=== PATIENT | male | born 1990 | race Caucasian/White ===

== ENCOUNTER 2021-03-07 09:44 | Inpatient (IN) | payer OTHER ==
[~2021-03-07 09:44] MED LIST: Iopamidol-370 76% 500 ML 1 ML ONE
[2021-03-07] MEDS ORDERED: Boostrix 0.5 ML (Tdap) VIAL ONE (09:50)
[2021-03-07] MEDS ORDERED: Fentanyl 100 MCG/2 ML VIAL ONE ×6 (09:51→17:51)
[2021-03-07 10:04] LABS: #Basophils 0.2 thou/uL (0.0-0.2); #Eosinphils 0.4 thou/uL (0.0-0.7); #Lymphocytes 5.1 thou/uL (1.20-3.40); #Monocytes 1.3 thou/uL (0.11-0.59); #Neutrophils 11.3 thou/uL (1.40-6.50); %Basophils 0.8 % (0.0-1.0); %Eosinophils 1.9 % (0.0-10.0); %Lymphocytes 28.1 % (21.0-51.0); %Monocytes 7.1 % (0.0-10.0); Hemoglobin 15.6 g/dL (14.0-18.0); Mean Corpuscular HGB CONC 33.4 g/dL (32.0-36.0); Mean Corpuscular Hemoglobin 29.7 pg (27.0-31.0); Mean Corpuscular Volume 88.8 fL (78.0-98.0); Mean Platelet Volume 8.4 fL (7.4-10.4); Platelet Count 318 thou/uL (130-400); Red Blood Cell (RBC) Count 5.25 mill/uL (4.70-6.10); White Blood Cell (WBC) Count 18.2 thou/uL (4.8-10.8)
[2021-03-07] MEDS ORDERED: Meropenem 2 GM in Sodium Chloride 0.9% 100 ML IVPB SCH (10:15)
[2021-03-07] MEDS ORDERED: Meropenem 2 GM in Admixture Fee 1 EACH IVPB SCH (10:15)
[2021-03-07 10:20] LABS: INR-International Normal Ratio 1.2; PTT 32.3 sec (22.9-36.1); Prothrombin Time 15.2 sec (12.0-14.7)
[2021-03-07 10:29] LABS: Actual Bicarbonate (HCO3v) 25 mEq/L (22-28); Analyzer IN Cardio ER; Base Excess -2.8 mEq/L (-2.0 to +3.0); Calcium, Ionized (venous) 1.11 mmol/L (1.16-1.32); Chloride (VBG) 100 mmol/L (98-106); Hemoglobin (Hb) 13.5 g/dL (13.2-17.3); Sodium 134.7 mmol/L (133-146); pH (venous) 7.28 (7.32-7.43)
[2021-03-07 10:30] LABS: ALT (SGPT) 70 U/L (8-55); AST (SGOT) 78 U/L (5-34); Albumin 4.2 g/dL (3.5-5.0); Alkaline Phosphatase 55 U/L (40-110); Anion Gap 17 mmol/L (10-20); BUN (Urea Nitrogen) 14 mg/dL (8.9-20.6); Bilirubin, Total 0.9 mg/dL (0.2-1.2); Calc. Creatinine Clearance 0 mL/min (70-130); Calcium 9.5 mg/dL (7.8-10.44); Carbon Dioxide 25 mmol/L (22-29); Chloride 103 mmol/L (98-107); Globulin 2.4 g/dL (2.4-3.5); Glucose 153 mg/dL (70-105); Protein, Total 6.6 g/dL (6.0-8.3); Sodium 142 mmol/L (136-145)
[2021-03-07 10:40] LABS: Potassium 2.7 mmol/L (3.5-5.1)
[2021-03-07 11:40] LABS: CKMB 5.4 ng/mL (0-6.6)
[2021-03-07] MEDS ORDERED: Ketamine 50 MG/ML (10ML VIAL) ONE (11:41)
[2021-03-07 12:11] LABS: SARS-CoV-2 NAA Rapid Test Not Detected (NotDetected)
[2021-03-07] MEDS ORDERED: CEFAZOLIN 2 GM in Premix Bag 1 BAG IVPB SCH (12:15)
[2021-03-07] MEDS ORDERED: Ondansetron PF 4 MG/2 ML Vial IVP PRN (12:34)
[2021-03-07] MEDS ORDERED: Ondansetron ODT 4 MG TAB PO PRN (12:34)
[2021-03-07] MEDS ORDERED: Dextrose 5% in Water 1,000 ML IV PRN (12:34)
[2021-03-07] MEDS ORDERED: Dextrose 50% Abboject 50 ML SYRINGE SLOW IVP PRN (12:34)
[2021-03-07 13:01] LABS: Analyzer IN Cardio ER; CO2 Tension 36.1 mmHg (35.0-45.0); Calcium, Ionized (arterial) 1.04 mmol/L (1.12-1.30); Carboxyhemoglobin (COHb) 0.2 gm% (0.0-3.0); Hemoglobin (Hb) 13.8 g/dL (14.0-18.0); Potassium - ABG Lab 3.07 mmol/L (3.70-5.30); pH, Arterial 7.34 (7.35-7.45)
[2021-03-07 13:04] LABS: O2 Tension (PaO2), arterial 51.6 mmHg (80.0-100.0); Puncture Site RFA
[2021-03-07 13:07] LABS: ALV-art Gradient 53.005 mmHg (0-20)
[2021-03-07] MEDS ORDERED: Calcium Chloride 1 GM/10 ML Abboject SYRINGE ONE ×2 (13:07→14:13)
[2021-03-07] MEDS ORDERED: Calcium Chloride 1 GM/10 ML Abboject SYRINGE IVP SCH (13:15)
[2021-03-07 13:41] LABS: Lactic Acid 6.5 mmol/L (0.5-2.2)
[2021-03-07] MEDS ORDERED: Phenylephrine 10 MG/ML VIAL ONE ×2 (14:01→15:55)
[2021-03-07] MEDS ORDERED: ePHEDrine Sulfate 50 MG/10 ML VIAL ONE (14:13)
[2021-03-07] MEDS ORDERED: Vecuronium 10 MG VIAL ONE (14:13)
[2021-03-07] MEDS ORDERED: PROPOFOL 200 MG/20 ML VIAL ONE (14:13)
[2021-03-07] MEDS ORDERED: Rocuronium Bromide 10 MG/ML (10ML VIAL) ONE (14:13)
[2021-03-07] MEDS ORDERED: Lidocaine 1% PF 5 ML VIAL ONE (14:13)
[2021-03-07] MEDS ORDERED: Succinylcholine 200 MG/10 ml SYRINGE FS ONE (14:13)
[2021-03-07] MEDS ORDERED: Clindamycin/D5W 900 mg/50 ml Premix Bag ONE (14:42)
[2021-03-07] MEDS ORDERED: Cyclobenzaprine 10 MG TAB PO PRN (15:06)
[2021-03-07] MEDS ORDERED: Lactated Ringer's 1,000 ML IV SCH (15:15)
[2021-03-07] MEDS ORDERED: Potassium Phosphate 30 MMOL in Sodium Chloride 0.9% 500 ML IVPB SCH ×2 (16:00→18:30)
[2021-03-07] MEDS ORDERED: Lidocaine 1% w/Epinephrine 1:100K 20 ML VIAL IJ SCH (16:30)
[2021-03-07] MEDS ORDERED: fentaNYL Citrate/PF 2,000 MCG in Sodium Chloride 0.9% 60 ML IV PRN (17:33)
[2021-03-07] MEDS ORDERED: Potassium Chloride 20 MEQ in Premix Bag 1 BAG IVPB SCH (17:45)
[2021-03-07] MEDS ORDERED: Propofol 1,000 MG/100 ML VIAL IV PRN (17:52)
[2021-03-07] MEDS ORDERED: traMADol HCl 50 MG TAB PO SCH (18:00)
[2021-03-07] MEDS ORDERED: Fentanyl CADD 100 ML IV SCH (18:00)
[2021-03-07 18:09] LABS: Base Excess (BEa) -8.9 mEq/L (-2.0 to +3.0); CO2 Tension 48.7 mmHg (35.0-45.0); Carboxyhemoglobin (COHb) 0.3 gm% (0.0-3.0); Hemoglobin (Hb) 12.7 g/dL (14.0-18.0); O2 Tension (PaO2), arterial 301.1 mmHg (80.0-100.0); Potassium - ABG Lab 4.59 mmol/L (3.70-5.30)
[2021-03-07 18:11] LABS: pH, Arterial 7.21 (7.35-7.45)
[2021-03-07 18:12] LABS: ALV-art Gradient 65.825 mmHg (0-20); Puncture Site RFA
[2021-03-07 18:20] LABS: #Eosinphils 0.1 thou/uL (0.0-0.7); #Lymphocytes 1.3 thou/uL (1.20-3.40); #Monocytes 2.1 thou/uL (0.11-0.59); #Neutrophils 15.2 thou/uL (1.40-6.50); %Eosinophils 0.4 % (0.0-10.0); %Lymphocytes 6.8 % (21.0-51.0); %Neutrophils 81.8 % (42.0-75.0); Mean Corpuscular HGB CONC 34.4 g/dL (32.0-36.0); Mean Corpuscular Hemoglobin 31.5 pg (27.0-31.0); Mean Corpuscular Volume 91.6 fL (78.0-98.0); Mean Platelet Volume 8.4 fL (7.4-10.4); Platelet Count 141 thou/uL (130-400); RBC Distribution Width 12.5 % (11.5-14.5); Red Blood Cell (RBC) Count 4.13 mill/uL (4.70-6.10); White Blood Cell (WBC) Count 18.6 thou/uL (4.8-10.8)
[2021-03-07] MEDS ORDERED: Fentanyl CADD 100 ML ONE (18:20)
[2021-03-07 18:31] LABS: INR-International Normal Ratio 1.3; PTT 25.3 sec (22.9-36.1); Prothrombin Time 16.7 sec (12.0-14.7)
[2021-03-07 18:46] LABS: Anion Gap 15 mmol/L (10-20); BUN (Urea Nitrogen) 13 mg/dL (8.9-20.6); CK (CPK) 2878 U/L (30-200); Calc. Creatinine Clearance 125 mL/min (70-130); Calcium 10.5 mg/dL (7.8-10.44); Carbon Dioxide 17 mmol/L (22-29); Chloride 112 mmol/L (98-107); Glucose 145 mg/dL (70-105); Lactic Acid 8.1 mmol/L (0.5-2.2); Potassium 4.7 mmol/L (3.5-5.1); Sodium 139 mmol/L (136-145)
[2021-03-07 18:50] LABS: Magnesium 1.3 mg/dL (1.6-2.6); Phosphorus 5.9 mg/dL (2.3-4.7)
[2021-03-07] MEDS ORDERED: Lidocaine 1% w/Epinephrine 1:100K 20 ML VIAL FS SCH (19:15)
[2021-03-07] MEDS ORDERED: Magnesium Sulfate 3 GM in Sodium Chloride 0.9% 100 ML IVPB SCH (19:48)
[2021-03-07] MEDS: Lactated Ringer's 1,000 ML IV SCH (20:47)
[2021-03-07] MEDS: Acetaminophen 500 MG TAB PO SCH ×2 (21:49→21:50)
[2021-03-07] MEDS: Ascorbic Acid 500 mg Chewable Tablet PO SCH (21:49)
[2021-03-07] MEDS: Gabapentin 300 MG CAP PO SCH (21:49)
[2021-03-07] MEDS: Famotidine/PF 20 mg/2ml Vial SLOW IVP SCH (21:49)
[2021-03-07] MEDS: Clindamycin/D5W 900 MG in Premix Bag 1 BAG IVPB SCH (21:51)
[2021-03-07] MEDS: Ferrous Sulfate 325 MG TAB PO SCH (22:57)
[2021-03-08 03:37] LABS: INR-International Normal Ratio 1.2; PTT 29.9 sec (22.9-36.1); Prothrombin Time 15.2 sec (12.0-14.7)
[2021-03-08 03:59] LABS: Anion Gap 12 mmol/L (10-20); BUN (Urea Nitrogen) 14 mg/dL (8.9-20.6); Calc. Creatinine Clearance 153 mL/min (70-130); Calcium 8.6 mg/dL (7.8-10.44); Carbon Dioxide 25 mmol/L (22-29); Chloride 105 mmol/L (98-107); Glucose 121 mg/dL (70-105); Magnesium 1.5 mg/dL (1.6-2.6); Potassium 4.7 mmol/L (3.5-5.1); Sodium 137 mmol/L (136-145)
[2021-03-08 04:00] LABS: CK (CPK) 3699 U/L (30-200); Phosphorus 3.8 mg/dL (2.3-4.7)
[2021-03-08] MEDS: Lactated Ringer's 1,000 ML IV SCH ×4 (04:12→23:11)
[2021-03-08] MEDS: Acetaminophen 500 MG TAB PO SCH ×4 (04:13→21:20)
[2021-03-08 04:15] LABS: #Lymphocytes 1.1 thou/uL (1.20-3.40); #Monocytes 1.2 thou/uL (0.11-0.59); #Neutrophils 6.2 thou/uL (1.40-6.50); %Basophils 0.2 % (0.0-1.0); %Lymphocytes 13.3 % (21.0-51.0); %Monocytes 13.5 % (0.0-10.0); %Neutrophils 72.9 % (42.0-75.0); Hemoglobin 9.5 g/dL (14.0-18.0); Mean Corpuscular HGB CONC 36.4 g/dL (32.0-36.0); Mean Corpuscular Hemoglobin 31.9 pg (27.0-31.0); Mean Corpuscular Volume 87.8 fL (78.0-98.0); Mean Platelet Volume 8.6 fL (7.4-10.4); Platelet Count 96 thou/uL (130-400); RBC Distribution Width 12.6 % (11.5-14.5); Red Blood Cell (RBC) Count 2.97 mill/uL (4.70-6.10); White Blood Cell (WBC) Count 8.5 thou/uL (4.8-10.8)
[2021-03-08] MEDS: Clindamycin/D5W 900 MG in Premix Bag 1 BAG IVPB SCH (05:20)
[2021-03-08] MEDS ORDERED: Magnesium Sulfate 3 GM in Sodium Chloride 0.9% 100 ML IVPB SCH (06:00)
[2021-03-08] MEDS: Famotidine/PF 20 mg/2ml Vial SLOW IVP SCH ×2 (08:09→21:18)
[2021-03-08] MEDS: Gabapentin 300 MG CAP PO SCH ×3 (08:09→21:18)
[2021-03-08] MEDS: Ferrous Sulfate 325 MG TAB PO SCH ×3 (08:10→16:51)
[2021-03-08] MEDS: Ascorbic Acid 500 mg Chewable Tablet PO SCH ×2 (08:10→21:20)
[2021-03-08] MEDS ORDERED: Promethazine HCl 25 MG/ML VIAL IM PRN (09:15)
[2021-03-08] MEDS ORDERED: Naloxone HCl 0.4 mg/ml Vial IV PRN (09:15)
[2021-03-08] MEDS ORDERED: diphenhydrAMINE 50 MG/ML VIAL IM PRN (09:15)
[2021-03-08] MEDS ORDERED: Zolpidem Tartrate 5 MG TAB PO PRN (09:15)
[2021-03-08] MEDS ORDERED: Communication Order-Pharmacy FS SCH (09:15)
[2021-03-08] MEDS ORDERED: Ondansetron PF 4 MG/2 ML Vial IVP PRN (09:15)
[2021-03-08] MEDS ORDERED: diphenhydrAMINE 50 MG/ML VIAL IVP PRN (09:15)
[2021-03-08] MEDS: HYDROmorphone 10 mg/100 ml CADD IVPB PRN (09:59)
[2021-03-08 14:03] LABS: Hemoglobin 8.1 g/dL (14.0-18.0)
[2021-03-08] MEDS ORDERED: CEFAZOLIN 2 GM in Premix Bag 1 BAG IVPB SCH (17:00)
[2021-03-08 21:15] LABS: #Lymphocytes 0.8 thou/uL (1.20-3.40); #Monocytes 0.7 thou/uL (0.11-0.59); #Neutrophils 5.3 thou/uL (1.40-6.50); %Basophils 0.1 % (0.0-1.0); %Eosinophils 0.5 % (0.0-10.0); %Monocytes 10.7 % (0.0-10.0); %Neutrophils 76.7 % (42.0-75.0); Hemoglobin 8.8 g/dL (14.0-18.0); Mean Corpuscular HGB CONC 36.2 g/dL (32.0-36.0); Mean Corpuscular Hemoglobin 32.3 pg (27.0-31.0); Mean Corpuscular Volume 89.2 fL (78.0-98.0); Mean Platelet Volume 7.7 fL (7.4-10.4); Platelet Count 73 thou/uL (130-400); RBC Distribution Width 12.4 % (11.5-14.5); Red Blood Cell (RBC) Count 2.71 mill/uL (4.70-6.10); White Blood Cell (WBC) Count 6.9 thou/uL (4.8-10.8)
[2021-03-08] MEDS ORDERED: Magnesium Sulfate 2 GM in Sodium Chloride 0.9% 100 ML IV SCH (21:45)
[2021-03-08] MEDS ORDERED: Magnesium 2 GM/50 ML 2 GM in Premix Bag 1 BAG IVPB SCH (22:00)
[2021-03-09 04:10] LABS: #Lymphocytes 0.8 thou/uL (1.20-3.40); #Monocytes 0.7 thou/uL (0.11-0.59); #Neutrophils 5.7 thou/uL (1.40-6.50); %Basophils 0.2 % (0.0-1.0); %Eosinophils 0.5 % (0.0-10.0); %Lymphocytes 11.3 % (21.0-51.0); Hemoglobin 8.1 g/dL (14.0-18.0); Mean Corpuscular Hemoglobin 32.8 pg (27.0-31.0); Mean Corpuscular Volume 88.6 fL (78.0-98.0); Mean Platelet Volume 7.8 fL (7.4-10.4); Platelet Count 80 thou/uL (130-400); RBC Distribution Width 12.3 % (11.5-14.5); Red Blood Cell (RBC) Count 2.46 mill/uL (4.70-6.10); White Blood Cell (WBC) Count 7.2 thou/uL (4.8-10.8)
[2021-03-09 04:35] LABS: Anion Gap 6 mmol/L (10-20); BUN (Urea Nitrogen) 8 mg/dL (8.9-20.6); Calc. Creatinine Clearance 185 mL/min (70-130); Calcium 8.3 mg/dL (7.8-10.44); Carbon Dioxide 31 mmol/L (22-29); Chloride 101 mmol/L (98-107); Glucose 118 mg/dL (70-105); Magnesium 1.9 mg/dL (1.6-2.6); Phosphorus 2.1 mg/dL (2.3-4.7); Potassium 3.9 mmol/L (3.5-5.1); Sodium 134 mmol/L (136-145)
[2021-03-09 04:36] LABS: CK (CPK) 5149 U/L (30-200)
[2021-03-09] MEDS: Acetaminophen 500 MG TAB PO SCH ×4 (06:53→21:49)
[2021-03-09] MEDS ORDERED: Dextrose 5 % And 0.9 % NaCl 1,000 ML IV SCH (07:15)
[2021-03-09] MEDS ORDERED: Potassium Phosphate 30 MMOL, Magnesium Sulfate 2 GM in Sodium Chloride 0.9% 250 ML 250 ML IVPB SCH (07:30)
[2021-03-09] MEDS ORDERED: Magnesium 2 GM/50 ML 2 GM in Premix Bag 1 BAG IVPB SCH (07:30)
[2021-03-09] MEDS: Sodium Chloride 0.9% 1,000 ML IV SCH ×3 (08:42→21:15)
[2021-03-09] MEDS: Ascorbic Acid 500 mg Chewable Tablet PO SCH ×2 (13:56→21:51)
[2021-03-09] MEDS: Ferrous Sulfate 325 MG TAB PO SCH ×2 (13:56→16:34)
[2021-03-09] MEDS: Famotidine 20 MG TAB PER TUBE SCH ×2 (13:56→21:51)
[2021-03-09] MEDS: Gabapentin 300 MG CAP PO SCH ×3 (13:57→21:51)
[2021-03-09 14:05] LABS: Actual Bicarbonate (HCO3v) 24 mEq/L (22-28); Analyzer IN Cardio OR; Base Excess -5.5 mEq/L (-2.0 to +3.0); Calcium, Ionized (venous) 1.25 mmol/L (1.16-1.32); Chloride (VBG) 108 mmol/L (98-106); Hemoglobin (Hb) 11.8 g/dL (13.2-17.3); Potassium (VBG) 3.86 mmol/L (3.70-5.30); Sodium 137.7 mmol/L (133-146)
[2021-03-09 14:05] LABS: Actual Bicarbonate (HCO3v) 22 mEq/L (22-28); Analyzer IN Cardio OR; Base Excess -6.9 mEq/L (-2.0 to +3.0); Calcium, Ionized (venous) 1.36 mmol/L (1.16-1.32); Chloride (VBG) 107 mmol/L (98-106); Hemoglobin (Hb) 12.6 g/dL (13.2-17.3); Potassium (VBG) 4.34 mmol/L (3.70-5.30); Sodium 137.6 mmol/L (133-146)
[2021-03-09 14:08] LABS: pH (venous) 7.14 (7.32-7.43)
[2021-03-09 14:09] LABS: pH (venous) 7.19 (7.32-7.43)
[2021-03-09] MEDS ORDERED: Fentanyl 100 MCG/2 ML VIAL ONE (16:59)
[2021-03-09] MEDS ORDERED: Ondansetron PF 4 MG/2 ML Vial ONE (17:12)
[2021-03-09] MEDS ORDERED: PHENYLEPHRINE-NS 100 MCG/ML 10 ML SYRINGE ONE (17:12)
[2021-03-09] MEDS ORDERED: Dexamethasone 20 MG/5 ML VIAL ONE (17:12)
[2021-03-09] MEDS ORDERED: Lidocaine 1% PF 5 ML VIAL ONE (17:12)
[2021-03-09] MEDS ORDERED: PROPOFOL 200 MG/20 ML VIAL ONE (17:12)
[2021-03-09] MEDS: HYDROmorphone 10 mg/100 ml CADD IVPB PRN (21:10)
[2021-03-09] MEDS: CEFAZOLIN 2 GM in Premix Bag 1 BAG IVPB SCH (21:48)
[2021-03-10 04:13] LABS: INR-International Normal Ratio 1.1; PTT 33.1 sec (22.9-36.1); Prothrombin Time 14.3 sec (12.0-14.7)
[2021-03-10 04:20] LABS: #Basophils 0.1 thou/uL (0.0-0.2); #Lymphocytes 0.4 thou/uL (1.20-3.40); #Monocytes 0.4 thou/uL (0.11-0.59); #Neutrophils 6.4 thou/uL (1.40-6.50); %Basophils 0.7 % (0.0-1.0); %Lymphocytes 5.9 % (21.0-51.0); %Monocytes 5.4 % (0.0-10.0); Hemoglobin 7.9 g/dL (14.0-18.0); Mean Corpuscular HGB CONC 36.4 g/dL (32.0-36.0); Mean Corpuscular Hemoglobin 33.1 pg (27.0-31.0); Mean Corpuscular Volume 91.1 fL (78.0-98.0); Mean Platelet Volume 7.6 fL (7.4-10.4); Platelet Count 119 thou/uL (130-400); RBC Distribution Width 12.2 % (11.5-14.5); Red Blood Cell (RBC) Count 2.37 mill/uL (4.70-6.10); White Blood Cell (WBC) Count 7.2 thou/uL (4.8-10.8)
[2021-03-10 04:29] LABS: Anion Gap 8 mmol/L (10-20); BUN (Urea Nitrogen) 10 mg/dL (8.9-20.6); Calc. Creatinine Clearance 174 mL/min (70-130); Calcium 7.9 mg/dL (7.8-10.44); Carbon Dioxide 31 mmol/L (22-29); Chloride 103 mmol/L (98-107); Glucose 157 mg/dL (70-105); Magnesium 2.1 mg/dL (1.6-2.6); Phosphorus 2.2 mg/dL (2.3-4.7); Potassium 4.3 mmol/L (3.5-5.1); Sodium 138 mmol/L (136-145)
[2021-03-10] MEDS: Acetaminophen 500 MG TAB PO SCH ×4 (04:30→20:37)
[2021-03-10 04:43] LABS: CK (CPK) 4410 U/L (30-200)
[2021-03-10] MEDS: CEFAZOLIN 2 GM in Premix Bag 1 BAG IVPB SCH (05:30)
[2021-03-10] MEDS ORDERED: Potassium Phosphate 30 MMOL in Sodium Chloride 0.9% 250 ML 250 ML IVPB SCH (08:15)
[2021-03-10] MEDS: Ferrous Sulfate 325 MG TAB PO SCH ×2 (08:17→17:30)
[2021-03-10] MEDS: Gabapentin 300 MG CAP PO SCH ×3 (08:17→20:37)
[2021-03-10] MEDS: Ascorbic Acid 500 mg Chewable Tablet PO SCH ×2 (08:17→20:37)
[2021-03-10] MEDS: Famotidine 20 MG TAB PER TUBE SCH ×2 (08:18→20:37)
[2021-03-10] MEDS ORDERED: HYDROmorphone 10 mg/100 ml CADD IVPB PRN (17:16)
[2021-03-10] MEDS: Senokot S 8.6-50 MG TAB PO SCH (20:36)
[2021-03-10] MEDS: diphenhydrAMINE 25 MG CAP PO PRN (20:38)
[2021-03-11] MEDS: Acetaminophen 500 MG TAB PO SCH ×4 (05:42→21:04)
[2021-03-11 09:09] LABS: #Eosinphils 0.2 thou/uL (0.0-0.7); #Lymphocytes 1.9 thou/uL (1.20-3.40); #Monocytes 0.8 thou/uL (0.11-0.59); #Neutrophils 5.1 thou/uL (1.40-6.50); %Basophils 0.5 % (0.0-1.0); %Eosinophils 2.2 % (0.0-10.0); %Lymphocytes 23.4 % (21.0-51.0); %Monocytes 9.8 % (0.0-10.0); Hemoglobin 7.1 g/dL (14.0-18.0); Mean Corpuscular HGB CONC 34.2 g/dL (32.0-36.0); Mean Corpuscular Hemoglobin 31.5 pg (27.0-31.0); Mean Platelet Volume 6.6 fL (7.4-10.4); Platelet Count 211 thou/uL (130-400); RBC Distribution Width 12.5 % (11.5-14.5); Red Blood Cell (RBC) Count 2.27 mill/uL (4.70-6.10); White Blood Cell (WBC) Count 7.9 thou/uL (4.8-10.8)
[2021-03-11] MEDS: Ferrous Sulfate 325 MG TAB PO SCH ×2 (09:20→18:28)
[2021-03-11] MEDS: Gabapentin 300 MG CAP PO SCH ×3 (09:20→21:05)
[2021-03-11] MEDS: Ascorbic Acid 500 mg Chewable Tablet PO SCH ×2 (09:20→21:05)
[2021-03-11] MEDS: Polyethylene Glycol 3350 17 GM Packet PO SCH (09:20)
[2021-03-11] MEDS: Senokot S 8.6-50 MG TAB PO SCH ×2 (09:22→21:06)
[2021-03-11] MEDS: Famotidine 20 MG TAB PER TUBE SCH ×2 (09:22→21:05)
[2021-03-11 09:41] LABS: Anion Gap 7 mmol/L (10-20); BUN (Urea Nitrogen) 13 mg/dL (8.9-20.6); CK (CPK) 2627 U/L (30-200); Calc. Creatinine Clearance 189 mL/min (70-130); Calcium 8.6 mg/dL (7.8-10.44); Carbon Dioxide 33 mmol/L (22-29); Chloride 105 mmol/L (98-107); Glucose 99 mg/dL (70-105); Magnesium 1.9 mg/dL (1.6-2.6); Phosphorus 2.7 mg/dL (2.3-4.7); Potassium 3.9 mmol/L (3.5-5.1); Sodium 141 mmol/L (136-145)
[2021-03-11] MEDS: diphenhydrAMINE 25 MG CAP PO PRN (11:52)
[2021-03-11] MEDS ORDERED: Ibuprofen 800 MG TAB PO SCH (14:00)
[2021-03-11] MEDS ORDERED: Ibuprofen 200 MG TAB PO SCH (14:30)
[2021-03-11] MEDS: traMADol HCl 50 MG TAB PO PRN (16:20)
[2021-03-11] MEDS: Enoxaparin Sodium 40 MG/0.4 ML SYRINGE SC SCH (21:03)
[2021-03-11] MEDS: Ibuprofen 200 MG TAB PO SCH (21:05)
[2021-03-12] MEDS: traMADol HCl 50 MG TAB PO PRN ×3 (03:18→22:04)
[2021-03-12] MEDS: Acetaminophen 500 MG TAB PO SCH ×4 (03:18→22:03)
[2021-03-12] MEDS: Ibuprofen 200 MG TAB PO SCH ×3 (05:17→22:03)
[2021-03-12 05:49] LABS: #Eosinphils 0.3 thou/uL (0.0-0.7); #Lymphocytes 1.8 thou/uL (1.20-3.40); #Monocytes 0.7 thou/uL (0.11-0.59); #Neutrophils 4.2 thou/uL (1.40-6.50); %Basophils 0.3 % (0.0-1.0); %Eosinophils 4.1 % (0.0-10.0); %Lymphocytes 25.3 % (21.0-51.0); %Monocytes 10.2 % (0.0-10.0); Hemoglobin 7.5 g/dL (14.0-18.0); Mean Corpuscular HGB CONC 34.3 g/dL (32.0-36.0); Mean Corpuscular Hemoglobin 31.4 pg (27.0-31.0); Mean Corpuscular Volume 91.5 fL (78.0-98.0); Mean Platelet Volume 6.4 fL (7.4-10.4); Platelet Count 222 thou/uL (130-400); RBC Distribution Width 12.4 % (11.5-14.5); White Blood Cell (WBC) Count 7.1 thou/uL (4.8-10.8)
[2021-03-12 06:13] LABS: Anion Gap 13 mmol/L (10-20); BUN (Urea Nitrogen) 12 mg/dL (8.9-20.6); Calc. Creatinine Clearance 193 mL/min (70-130); Calcium 8.5 mg/dL (7.8-10.44); Carbon Dioxide 28 mmol/L (22-29); Chloride 103 mmol/L (98-107); Glucose 94 mg/dL (70-105); Magnesium 1.9 mg/dL (1.6-2.6); Phosphorus 3.5 mg/dL (2.3-4.7); Potassium 3.8 mmol/L (3.5-5.1); Sodium 140 mmol/L (136-145)
[2021-03-12] MEDS: Senokot S 8.6-50 MG TAB PO SCH ×2 (09:16→22:02)
[2021-03-12] MEDS: Gabapentin 300 MG CAP PO SCH ×3 (09:16→22:04)
[2021-03-12] MEDS: Famotidine 20 MG TAB PER TUBE SCH ×2 (09:16→22:02)
[2021-03-12] MEDS: Ascorbic Acid 500 mg Chewable Tablet PO SCH ×2 (09:16→22:02)
[2021-03-12] MEDS: Ferrous Sulfate 325 MG TAB PO SCH ×2 (09:17→16:16)
[2021-03-12] MEDS: Polyethylene Glycol 3350 17 GM Packet PO SCH (09:17)
[2021-03-12] MEDS: Enoxaparin Sodium 40 MG/0.4 ML SYRINGE SC SCH (22:11)
[2021-03-13] MEDS: Acetaminophen 500 MG TAB PO SCH ×4 (04:53→21:13)
[2021-03-13] MEDS: Ibuprofen 200 MG TAB PO SCH ×3 (04:54→21:15)
[2021-03-13] MEDS: traMADol HCl 50 MG TAB PO PRN ×2 (08:54→16:39)
[2021-03-13] MEDS: Ferrous Sulfate 325 MG TAB PO SCH ×2 (08:55→16:37)
[2021-03-13] MEDS: Senokot S 8.6-50 MG TAB PO SCH ×2 (08:55→21:13)
[2021-03-13] MEDS: Gabapentin 300 MG CAP PO SCH ×3 (08:55→21:15)
[2021-03-13] MEDS: Ascorbic Acid 500 mg Chewable Tablet PO SCH ×2 (08:55→21:15)
[2021-03-13] MEDS: Famotidine 20 MG TAB PER TUBE SCH ×2 (08:56→21:15)
[2021-03-13] MEDS: Polyethylene Glycol 3350 17 GM Packet PO SCH (08:57)
[2021-03-13] MEDS: Enoxaparin Sodium 40 MG/0.4 ML SYRINGE SC SCH (21:13)
[2021-03-14] MEDS: Acetaminophen 500 MG TAB PO SCH ×4 (04:45→20:33)
[2021-03-14] MEDS: Ibuprofen 200 MG TAB PO SCH ×3 (06:35→20:32)
[2021-03-14 06:40] LABS: Hemoglobin 8.1 g/dL (14.0-18.0); Mean Corpuscular HGB CONC 34.3 g/dL (32.0-36.0); Mean Corpuscular Hemoglobin 31.1 pg (27.0-31.0); Mean Corpuscular Volume 90.6 fL (78.0-98.0); Mean Platelet Volume 6.4 fL (7.4-10.4); Platelet Count 355 thou/uL (130-400); RBC Distribution Width 12.3 % (11.5-14.5); White Blood Cell (WBC) Count 9.3 thou/uL (4.8-10.8)
[2021-03-14 07:00] LABS: Anion Gap 11 mmol/L (10-20); BUN (Urea Nitrogen) 13 mg/dL (8.9-20.6); Calc. Creatinine Clearance 207 mL/min (70-130); Calcium 9.1 mg/dL (7.8-10.44); Carbon Dioxide 28 mmol/L (22-29); Chloride 103 mmol/L (98-107); Glucose 102 mg/dL (70-105); Phosphorus 3.4 mg/dL (2.3-4.7); Potassium 4.3 mmol/L (3.5-5.1); Sodium 138 mmol/L (136-145)
[2021-03-14 08:22] LABS: Band 7 % (5-11); Lymphocytes 7 % (21-51); MDiff Complete? YES; Metamyelocyte 1 % (0-0); Monocytes 6 % (0-10); Neutrophil 77 % (42-75); Platelet Morphology Comment Appears Adequate; Polychromasia SLIGHT = 2-3 cells (100X) (0-2/hpf); Reactive Lymphocytes 1 % (0-10)
[2021-03-14] MEDS: traMADol HCl 50 MG TAB PO PRN (09:24)
[2021-03-14] MEDS: Ascorbic Acid 500 mg Chewable Tablet PO SCH ×2 (09:26→20:32)
[2021-03-14] MEDS: Famotidine 20 MG TAB PER TUBE SCH ×2 (09:26→20:31)
[2021-03-14] MEDS: Senokot S 8.6-50 MG TAB PO SCH ×2 (09:26→20:32)
[2021-03-14] MEDS: Ferrous Sulfate 325 MG TAB PO SCH ×3 (09:27→20:32)
[2021-03-14] MEDS: Gabapentin 300 MG CAP PO SCH ×3 (09:27→20:31)
[2021-03-14] MEDS: Polyethylene Glycol 3350 17 GM Packet PO SCH (09:28)
[2021-03-14] MEDS: Cyclobenzaprine 10 MG TAB PO PRN (10:45)
[2021-03-14] MEDS ORDERED: traMADol HCl 50 MG TAB PO SCH (11:15)
[2021-03-14] MEDS ORDERED: Magnesium Citrate 300 ML BOT PO SCH (12:15)
[2021-03-14] MEDS: traMADol HCl 50 MG TAB PO SCH ×2 (13:43→18:08)
[2021-03-14] MEDS: Enoxaparin Sodium 40 MG/0.4 ML SYRINGE SC SCH (21:30)
[2021-03-15] MEDS: traMADol HCl 50 MG TAB PO SCH ×4 (00:56→18:01)
[2021-03-15] MEDS: Acetaminophen 500 MG TAB PO SCH ×4 (05:05→21:03)
[2021-03-15] MEDS: Ibuprofen 200 MG TAB PO SCH ×3 (05:06→21:04)
[2021-03-15 06:04] LABS: #Basophils 0.1 thou/uL (0.0-0.2); #Eosinphils 0.3 thou/uL (0.0-0.7); #Lymphocytes 1.5 thou/uL (1.20-3.40); #Monocytes 0.9 thou/uL (0.11-0.59); #Neutrophils 6.4 thou/uL (1.40-6.50); %Basophils 0.8 % (0.0-1.0); %Eosinophils 3.6 % (0.0-10.0); %Lymphocytes 16.5 % (21.0-51.0); %Monocytes 9.7 % (0.0-10.0); %Neutrophils 69.5 % (42.0-75.0); Hemoglobin 8.2 g/dL (14.0-18.0); Mean Corpuscular HGB CONC 34.5 g/dL (32.0-36.0); Mean Corpuscular Hemoglobin 31.2 pg (27.0-31.0); Mean Corpuscular Volume 90.6 fL (78.0-98.0); Mean Platelet Volume 6.3 fL (7.4-10.4); Platelet Count 446 thou/uL (130-400); RBC Distribution Width 12.4 % (11.5-14.5); Red Blood Cell (RBC) Count 2.61 mill/uL (4.70-6.10); White Blood Cell (WBC) Count 9.2 thou/uL (4.8-10.8)
[2021-03-15] MEDS ORDERED: CEFAZOLIN 2 GM in Premix Bag 1 BAG IVPB SCH (07:00)
[2021-03-15] MEDS: Ferrous Sulfate 325 MG TAB PO SCH ×2 (09:17→21:14)
[2021-03-15] MEDS: Gabapentin 300 MG CAP PO SCH ×3 (09:17→21:04)
[2021-03-15] MEDS: Famotidine 20 MG TAB PER TUBE SCH ×2 (09:17→21:05)
[2021-03-15] MEDS: Ascorbic Acid 500 mg Chewable Tablet PO SCH ×2 (09:18→21:04)
[2021-03-15] MEDS: Senokot S 8.6-50 MG TAB PO SCH ×2 (09:20→21:04)
[2021-03-15] MEDS: Polyethylene Glycol 3350 17 GM Packet PO SCH (09:20)
[2021-03-16] MEDS: traMADol HCl 50 MG TAB PO SCH ×5 (00:11→23:01)
[2021-03-16] MEDS: Acetaminophen 500 MG TAB PO SCH ×4 (05:30→23:00)
[2021-03-16] MEDS: Ibuprofen 200 MG TAB PO SCH ×3 (05:30→23:00)
[2021-03-16] MEDS: Ferrous Sulfate 325 MG TAB PO SCH ×2 (07:46→20:23)
[2021-03-16] MEDS: Polyethylene Glycol 3350 17 GM Packet PO SCH (07:46)
[2021-03-16] MEDS: Ascorbic Acid 500 mg Chewable Tablet PO SCH ×2 (07:46→20:23)
[2021-03-16] MEDS: Senokot S 8.6-50 MG TAB PO SCH ×2 (08:30→20:23)
[2021-03-16] MEDS: Gabapentin 300 MG CAP PO SCH ×3 (09:51→20:23)
[2021-03-16] MEDS: Famotidine 20 MG TAB PER TUBE SCH ×2 (09:51→20:23)
[2021-03-16] MEDS ORDERED: Fentanyl 100 MCG/2 ML VIAL ONE ×5 (11:43→15:49)
[2021-03-16] MEDS ORDERED: Midazolam HCl 2 mg/2 ml Vial ONE ×2 (12:22→12:58)
[2021-03-16] MEDS ORDERED: Glycopyrrolate 0.2 MG/ML 5 ML SYRINGE ONE (13:24)
[2021-03-16] MEDS ORDERED: Ketorolac Tromethamine 30 MG/ML VIAL ONE (13:24)
[2021-03-16] MEDS ORDERED: Bupivacaine HCl 0.5%/Epinephrine 1:200,000/PF 30 ml Vial ONE (13:24)
[2021-03-16] MEDS ORDERED: Rocuronium Bromide 10 MG/ML (10ML VIAL) ONE (13:24)
[2021-03-16] MEDS ORDERED: Ondansetron PF 4 MG/2 ML Vial ONE (13:24)
[2021-03-16] MEDS ORDERED: Lidocaine 1% PF 5 ML VIAL ONE (13:24)
[2021-03-16] MEDS ORDERED: Dexamethasone 20 MG/5 ML VIAL ONE (13:24)
[2021-03-16] MEDS ORDERED: Esmolol 100 MG/10 ML VIAL ONE (13:24)
[2021-03-16] MEDS ORDERED: PROPOFOL 200 MG/20 ML VIAL ONE (13:24)
[2021-03-16] MEDS ORDERED: Ondansetron HCl/PF 4 MG/2 ML Vial IVP PRN (15:14)
[2021-03-16] MEDS ORDERED: Promethazine HCl 25 MG/ML VIAL IVPB PRN (15:14)
[2021-03-16] MEDS ORDERED: Promethazine HCl 25 MG/ML VIAL IM PRN (15:14)
[2021-03-16] MEDS: Enoxaparin Sodium 40 MG/0.4 ML SYRINGE SC SCH (20:23)
[2021-03-16 22:23] LABS: #Eosinphils 0.2 thou/uL (0.0-0.7); #Lymphocytes 1.1 thou/uL (1.20-3.40); #Monocytes 0.7 thou/uL (0.11-0.59); #Neutrophils 11.6 thou/uL (1.40-6.50); %Basophils 0.1 % (0.0-1.0); %Eosinophils 1.1 % (0.0-10.0); %Lymphocytes 8.2 % (21.0-51.0); %Monocytes 5.1 % (0.0-10.0); %Neutrophils 85.5 % (42.0-75.0); Mean Corpuscular HGB CONC 33.5 g/dL (32.0-36.0); Mean Corpuscular Hemoglobin 30.2 pg (27.0-31.0); Mean Corpuscular Volume 90.2 fL (78.0-98.0); Mean Platelet Volume 5.9 fL (7.4-10.4); Platelet Count 726 thou/uL (130-400); RBC Distribution Width 12.5 % (11.5-14.5); Red Blood Cell (RBC) Count 2.96 mill/uL (4.70-6.10); White Blood Cell (WBC) Count 13.6 thou/uL (4.8-10.8)
[2021-03-16 22:39] LABS: Anion Gap 18 mmol/L (10-20); BUN (Urea Nitrogen) 16 mg/dL (8.9-20.6); Calc. Creatinine Clearance 178 mL/min (70-130); Calcium 9.6 mg/dL (7.8-10.44); Carbon Dioxide 26 mmol/L (22-29); Chloride 101 mmol/L (98-107); Glucose 111 mg/dL (70-105); Potassium 4.8 mmol/L (3.5-5.1); Sodium 140 mmol/L (136-145)
[2021-03-16 22:41] LABS: CK (CPK) 226 U/L (30-200); Magnesium 2.1 mg/dL (1.6-2.6); Phosphorus 3.5 mg/dL (2.3-4.7)
[2021-03-16] MEDS: CEFAZOLIN 2 GM in Premix Bag 1 BAG IVPB SCH (23:00)
[2021-03-17] MEDS: Ibuprofen 200 MG TAB PO SCH ×3 (05:08→22:56)
[2021-03-17] MEDS: traMADol HCl 50 MG TAB PO SCH ×4 (05:08→22:57)
[2021-03-17] MEDS: Acetaminophen 500 MG TAB PO SCH ×4 (05:08→22:56)
[2021-03-17] MEDS: CEFAZOLIN 2 GM in Premix Bag 1 BAG IVPB SCH ×2 (05:09→14:40)
[2021-03-17] MEDS: Gabapentin 300 MG CAP PO SCH ×3 (09:21→20:19)
[2021-03-17] MEDS: Ascorbic Acid 500 mg Chewable Tablet PO SCH ×2 (09:22→20:20)
[2021-03-17] MEDS: Ferrous Sulfate 325 MG TAB PO SCH ×2 (09:22→20:19)
[2021-03-17] MEDS: Senokot S 8.6-50 MG TAB PO SCH ×2 (09:22→20:19)
[2021-03-17] MEDS: traMADol HCl 50 MG TAB PO PRN (10:55)
[2021-03-17] MEDS: Polyethylene Glycol 3350 17 GM Packet PO SCH (12:29)
[2021-03-17] MEDS: Cyclobenzaprine 10 MG TAB PO PRN (16:36)
[2021-03-17] MEDS: Enoxaparin Sodium 40 MG/0.4 ML SYRINGE SC SCH (20:18)
[2021-03-18] MEDS: Cyclobenzaprine 10 MG TAB PO PRN ×2 (00:13→18:06)
[2021-03-18] MEDS: traMADol HCl 50 MG TAB PO PRN ×3 (00:13→15:56)
[2021-03-18] MEDS: Acetaminophen 500 MG TAB PO SCH ×4 (05:02→21:15)
[2021-03-18] MEDS: traMADol HCl 50 MG TAB PO SCH ×4 (05:02→23:14)
[2021-03-18] MEDS: Ibuprofen 200 MG TAB PO SCH ×3 (05:03→21:16)
[2021-03-18] MEDS: Gabapentin 300 MG CAP PO SCH ×3 (09:34→21:15)
[2021-03-18] MEDS: Ferrous Sulfate 325 MG TAB PO SCH ×2 (09:34→21:14)
[2021-03-18] MEDS: Senokot S 8.6-50 MG TAB PO SCH ×2 (09:34→21:17)
[2021-03-18] MEDS: Ascorbic Acid 500 mg Chewable Tablet PO SCH ×2 (09:34→21:14)
[2021-03-18] MEDS: Polyethylene Glycol 3350 17 GM Packet PO SCH (09:37)
[2021-03-18 10:47] VITALS: BMI 29.5
[2021-03-18] MEDS: Enoxaparin Sodium 40 MG/0.4 ML SYRINGE SC SCH (21:13)
[2021-03-19] MEDS: Acetaminophen 500 MG TAB PO SCH ×4 (03:59→22:30)
[2021-03-19] MEDS: traMADol HCl 50 MG TAB PO SCH ×3 (05:20→17:46)
[2021-03-19] MEDS: Ibuprofen 200 MG TAB PO SCH ×3 (05:21→22:31)
[2021-03-19] MEDS: Polyethylene Glycol 3350 17 GM Packet PO SCH (08:56)
[2021-03-19] MEDS: Gabapentin 300 MG CAP PO SCH ×3 (08:56→22:32)
[2021-03-19] MEDS: Ascorbic Acid 500 mg Chewable Tablet PO SCH ×2 (08:56→22:32)
[2021-03-19] MEDS: Ferrous Sulfate 325 MG TAB PO SCH ×2 (08:56→22:32)
[2021-03-19] MEDS: Senokot S 8.6-50 MG TAB PO SCH (08:57)
[2021-03-19] MEDS: Enoxaparin Sodium 40 MG/0.4 ML SYRINGE SC SCH (22:32)
[2021-03-20] MEDS: traMADol HCl 50 MG TAB PO PRN ×2 (00:15→06:33)
[2021-03-20] MEDS: traMADol HCl 50 MG TAB PO SCH ×4 (00:15→17:57)
[2021-03-20] MEDS: Senokot S 8.6-50 MG TAB PO SCH ×3 (00:17→23:26)
[2021-03-20] MEDS: Acetaminophen 500 MG TAB PO SCH ×4 (04:28→21:08)
[2021-03-20] MEDS: Ibuprofen 200 MG TAB PO SCH ×3 (06:32→21:08)
[2021-03-20] MEDS: Ferrous Sulfate 325 MG TAB PO SCH ×2 (09:05→21:09)
[2021-03-20] MEDS: Gabapentin 300 MG CAP PO SCH ×3 (09:05→21:07)
[2021-03-20] MEDS: Ascorbic Acid 500 mg Chewable Tablet PO SCH ×2 (09:05→21:07)
[2021-03-20] MEDS: Polyethylene Glycol 3350 17 GM Packet PO SCH (09:06)
[2021-03-20] MEDS: Enoxaparin Sodium 40 MG/0.4 ML SYRINGE SC SCH (21:09)
[2021-03-21] MEDS: traMADol HCl 50 MG TAB PO SCH ×5 (00:45→23:32)
[2021-03-21] MEDS: Acetaminophen 500 MG TAB PO SCH ×4 (04:20→21:55)
[2021-03-21] MEDS: Ibuprofen 200 MG TAB PO SCH ×3 (05:47→21:56)
[2021-03-21] MEDS: Ascorbic Acid 500 mg Chewable Tablet PO SCH ×2 (09:45→21:55)
[2021-03-21] MEDS: Gabapentin 300 MG CAP PO SCH ×3 (09:45→21:56)
[2021-03-21] MEDS: Polyethylene Glycol 3350 17 GM Packet PO SCH (09:45)
[2021-03-21] MEDS: Senokot S 8.6-50 MG TAB PO SCH ×2 (09:45→21:55)
[2021-03-21] MEDS: Ferrous Sulfate 325 MG TAB PO SCH ×2 (09:45→21:56)
[2021-03-21] MEDS: Enoxaparin Sodium 40 MG/0.4 ML SYRINGE SC SCH (21:55)
[2021-03-22] MEDS: Ibuprofen 200 MG TAB PO SCH ×3 (05:26→20:57)
[2021-03-22] MEDS: Acetaminophen 500 MG TAB PO SCH ×4 (05:26→20:56)
[2021-03-22] MEDS: traMADol HCl 50 MG TAB PO SCH ×3 (05:27→17:58)
[2021-03-22] MEDS: Ascorbic Acid 500 mg Chewable Tablet PO SCH ×2 (09:17→20:57)
[2021-03-22] MEDS: Ferrous Sulfate 325 MG TAB PO SCH ×2 (09:17→20:57)
[2021-03-22] MEDS: Gabapentin 300 MG CAP PO SCH ×3 (09:17→20:57)
[2021-03-22] MEDS: Polyethylene Glycol 3350 17 GM Packet PO SCH (09:18)
[2021-03-22] MEDS: Senokot S 8.6-50 MG TAB PO SCH ×2 (09:18→20:58)
[2021-03-22] MEDS: Enoxaparin Sodium 40 MG/0.4 ML SYRINGE SC SCH (20:56)
[2021-03-23] MEDS: traMADol HCl 50 MG TAB PO SCH ×5 (00:13→23:35)
[2021-03-23] MEDS: Ibuprofen 200 MG TAB PO SCH ×3 (05:29→20:53)
[2021-03-23] MEDS: Acetaminophen 500 MG TAB PO SCH ×4 (05:30→20:53)
[2021-03-23] MEDS: Ferrous Sulfate 325 MG TAB PO SCH ×2 (07:50→20:52)
[2021-03-23] MEDS: Ascorbic Acid 500 mg Chewable Tablet PO SCH ×2 (07:50→20:52)
[2021-03-23] MEDS: Polyethylene Glycol 3350 17 GM Packet PO SCH (07:51)
[2021-03-23] MEDS: Gabapentin 300 MG CAP PO SCH ×3 (07:51→20:53)
[2021-03-23] MEDS: Senokot S 8.6-50 MG TAB PO SCH ×2 (07:51→20:52)
[2021-03-23] MEDS: Enoxaparin Sodium 40 MG/0.4 ML SYRINGE SC SCH (20:52)
[2021-03-24] MEDS: traMADol HCl 50 MG TAB PO SCH ×4 (05:14→23:37)
[2021-03-24] MEDS: Ibuprofen 200 MG TAB PO SCH ×3 (05:14→21:29)
[2021-03-24] MEDS: Acetaminophen 500 MG TAB PO SCH ×4 (05:14→21:30)
[2021-03-24] MEDS: Ascorbic Acid 500 mg Chewable Tablet PO SCH ×2 (09:40→21:29)
[2021-03-24] MEDS: Ferrous Sulfate 325 MG TAB PO SCH ×2 (09:40→21:30)
[2021-03-24] MEDS: Senokot S 8.6-50 MG TAB PO SCH ×2 (09:41→21:32)
[2021-03-24] MEDS: Gabapentin 300 MG CAP PO SCH ×3 (09:43→21:29)
[2021-03-24] MEDS: Polyethylene Glycol 3350 17 GM Packet PO SCH (10:26)
[2021-03-24] MEDS: Enoxaparin Sodium 40 MG/0.4 ML SYRINGE SC SCH (21:31)
[2021-03-25] MEDS: Acetaminophen 500 MG TAB PO SCH ×4 (04:00→17:30)
[2021-03-25] MEDS: Ibuprofen 200 MG TAB PO SCH ×2 (05:47→17:29)
[2021-03-25] MEDS: Ascorbic Acid 500 mg Chewable Tablet PO SCH (08:57)
[2021-03-25] MEDS: Gabapentin 300 MG CAP PO SCH ×2 (08:57→17:31)
[2021-03-25] MEDS: Ferrous Sulfate 325 MG TAB PO SCH (08:57)
[2021-03-25] MEDS: traMADol HCl 50 MG TAB PO PRN (08:58)
[2021-03-25] MEDS: Senokot S 8.6-50 MG TAB PO SCH (09:03)
[2021-03-25] MEDS: Polyethylene Glycol 3350 17 GM Packet PO SCH (09:03)
[2021-03-25 16:24] VITALS: BP 118/74; TEMP 98.2
== END 2021-03-25 19:30 | disposition home health service (06) | DRG 956 ==
LOC: ERS 09:44 → SDC 13:30 → CCU 17:45 → SJJU 03-10 10:28
PROVIDERS: ADMIT Surgery; ATTEND Surgery
PROC: 0QS906Z Reposition Left Femoral Shaft with Intramedullary Internal Fixation Device, Open Approach (ICD-10-PCS; principal; 2021-03-07)
PROC: 30233K1 Transfusion of Nonautologous Frozen Plasma into Peripheral Vein, Percutaneous Approach (ICD-10-PCS; 2021-03-07)
PROC: 30233N1 Transfusion of Nonautologous Red Blood Cells into Peripheral Vein, Percutaneous Approach (ICD-10-PCS; 2021-03-07)
PROC: 30233M1 Transfusion of Nonautologous Plasma Cryoprecipitate into Peripheral Vein, Percutaneous Approach (ICD-10-PCS; 2021-03-07)
PROC: 08QRXZZ Repair Left Lower Eyelid, External Approach (ICD-10-PCS; 2021-03-07)
PROC: 5A1935Z Respiratory Ventilation, Less than 24 Consecutive Hours (ICD-10-PCS; 2021-03-07)
PROC: 0PSL04Z Reposition Left Ulna with Internal Fixation Device, Open Approach (ICD-10-PCS; 2021-03-09)
PROC: 0PSH04Z Reposition Right Radius with Internal Fixation Device, Open Approach (ICD-10-PCS; 2021-03-09)
PROC: 0PSD04Z Reposition Left Humeral Head with Internal Fixation Device, Open Approach (ICD-10-PCS; 2021-03-09)
PROC: 0QSM04Z Reposition Left Tarsal with Internal Fixation Device, Open Approach (ICD-10-PCS; 2021-03-16)
PROC: 3E0T3BZ Introduction of Anesthetic Agent into Peripheral Nerves and Plexi, Percutaneous Approach (ICD-10-PCS; 2021-03-16)
DX: S72.362A Displaced segmental fracture of shaft of left femur, initial encounter for closed fracture (principal); S27.0XXA Traumatic pneumothorax, initial encounter; R57.8 Other shock; J96.00 Acute respiratory failure, unspecified whether with hypoxia or hypercapnia; S02.40DA Maxillary fracture, left side, initial encounter for closed fracture; S42.222A 2-part displaced fracture of surgical neck of left humerus, initial encounter for closed fracture; S52.91XA Unspecified fracture of right forearm, initial encounter for closed fracture; S22.20XA Unspecified fracture of sternum, initial encounter for closed fracture; S52.511A Displaced fracture of right radial styloid process, initial encounter for closed fracture; S32.039A Unspecified fracture of third lumbar vertebra, initial encounter for closed fracture; S32.049A Unspecified fracture of fourth lumbar vertebra, initial encounter for closed fracture; S32.059A Unspecified fracture of fifth lumbar vertebra, initial encounter for closed fracture; S26.91XA Contusion of heart, unspecified with or without hemopericardium, initial encounter; D62 Acute posthemorrhagic anemia; E87.2 Acidosis; Z20.822 Contact with and (suspected) exposure to COVID-19; Z23 Encounter for immunization; S52.022A Displaced fracture of olecranon process without intraarticular extension of left ulna, initial encounter for closed fracture; S92.061A Displaced intraarticular fracture of right calcaneus, initial encounter for closed fracture; T79.6XXA Traumatic ischemia of muscle, initial encounter; S01.112A Laceration without foreign body of left eyelid and periocular area, initial encounter; E83.42 Hypomagnesemia; Z88.0 Allergy status to penicillin; V43.52XA Car driver injured in collision with other type car in traffic accident, initial encounter; Y92.410 Unspecified street and highway as the place of occurrence of the external cause; Z78.1 Physical restraint status
CPT/HCPCS: 0240U; 36415; 36416; 36430; 36600; 51702; 70450; 70486; 71045; 71260; 72125; 72170; 74177; 76000; 80048; 80053; 82550; 82553; 82805; 83605; 83735; 84100; 84484; 85025; 85384; 85610; 85730; 86850; 86900; 86901; 90471; 90715; 93005; 93010; 94002; 94003; 96365; 96375; 96376; C1713; G0390; J0690; J1100; J1650; J1885; J2185; J2250; J2370; J2405; J2704; J3010; J3475; J3490; J7050; P9012; P9016; P9045; P9059; Q0163; Q9967; S0028